=== PATIENT | female | born 1955 | race Caucasian/White ===

== ENCOUNTER 2016-07-25 04:07 | Inpatient (IN) | payer OTHER ==
[2016-07-12 12:07] LABS: BASOPHILS 0.2 %; BASOPHILS ABSOLUTE 0.01 10/3/uL (0.0-0.16); EOSINOPHILS 1.6 %; EOSINOPHILS ABSOLUTE 0.08 10/3/uL (0.0-0.53); IMMATURE GRANULOCYTES 0.2 %; IMMATURE GRANULOCYTES ABSOLUTE 0.01 10/3/uL (0.0-0.11); LYMPHOCYTES 26.1 %; LYMPHOCYTES ABSOLUTE 1.31 10/3/uL (0.67-4.30); MEAN PLATELET VOLUME 9.7 fL (9.2-13.0); MONOCYTES 8.4 %; MONOCYTES ABSOLUTE 0.42 10/3/uL (0.21-1.20); NEUTROPHILS 63.5 %; NEUTROPHILS ABSOLUTE 3.18 10/3/uL (2.02-8.40); PLATELET COUNT 214 10/3/uL (150-400); RBC DISTRIBUTION WIDTH 15.6 % (12.0-16.0)
[2016-07-12 12:10] LABS: HEMATOCRIT 40.6 % (36.0-48.0); HEMOGLOBIN 13.4 g/dL (12.0-16.0); MANUAL DIFF NO %; MEAN CORPUSCULAR HEMOGLOB 31.9 pg (26.0-34.0); MEAN CORPUSCULAR VOLUME 96.7 fL (80-100); PROTIME (NOT ORD) 13.3 SEC (12.0-14.5)
[2016-07-12 12:20] LABS: ALKALINE PHOSPHATASE 136 U/L (45-117); BUN (BLOOD UREA NITROGEN) 23 MG/DL (6-23); CALCIUM, SERUM 8.5 MG/DL (8.5-10.4); CHLORIDE, SERUM 106 MMOL/L (96-112); CO2 (CARBON DIOXIDE) 23 MMOL/L (24-34); GFR AFRICAN AMERICAN 56 ML/MIN (>=60); GFR NON AFRICAN AMERICAN 48 ML/MIN (>=60); POTASSIUM, SERUM 3.8 MMOL/L (3.5-5.3); SGOT(AST) 11 U/L (5-40); SGPT(ALT) 12 U/L (5-65); SODIUM, SERUM 142 MMOL/L (135-148); TOTAL PROTEIN 6.5 G/DL (6.0-8.5)
[2016-07-12 12:21] LABS: A/G RATIO 0.9 (0.7-1.9); ALBUMIN 3.1 G/DL (3.5-5.0); GLOBULIN 3.4 G/DL (2.5-4.1); GLUCOSE, SERUM 178 MG/DL (60-99); TOTAL BILIRUBIN 0.2 MG/DL (0-1.2)
[2016-07-12 13:37] LABS: ASCORBIC ACID (UR NOT ORDER) NEG (NEG); BILIRUBIN, URINE NEGATIVE (NEG); KETONE, URINE NEGATIVE (NEG); LEUKOCYTE ESTERASE(NOT OR NEG (NEG); WBC (NOT ORDERED) (RFLEX) 1 (0-5)
--- NOTE | ~2016-07-25 | DS ---
Discharge Summary [facility] [address] [place]. [address] NAME: SOPHIE MORAN : 53 STATUS : DIS IN PAT#: [id number] AGE: 61 ADM/REG DATE : 07/25/16 MR#: [id number] REPORT SERV DATE: 08/08/16 DICTATED BY: LINA CASON DATE: 08/07/16 REPORT STATUS : Draft TRANSCRIBED BY: MARYSOL DATE: 08/07/16 Data Collection from hospitalization DISCHARGE DIAGNOSES: 1. Severe left knee degenerative joint disease. 2. Hypertension. 3. History of lung cancer. 4. History of cerebrovascular accident. 5. History of seizures. 6. Gastroesophageal reflux disease. CONSULTATIONS: None. PROCEDURES PERFORMED: Left posterior stabilized total knee replacement - cemented, 07/25/2016. PATHOLOGY: Left knee joint arthroplasty - degenerative joint disease. No evidence was seen of an infectious or neoplastic process. DISCHARGE MEDICATIONS: Percocet 5/325 one tablet every four hours as needed for pain. Other medications as instructed. CONDITION AT DISCHARGE: Stable. DISPOSITION: The patient was discharged to [facility] with diet and activities as instructed. HOSPITAL COURSE: This is a 61-year-old female who had bilateral knee pain for years. It was gradually getting worse. It was severe and affected how far she could walk. A year ago, she has been set up for surgery but was found to have spot on her lungs. She was now cleared to have the surgery and has no cardiac issues. The patient wants to have both of her knees replaced. It was elected to proceed with surgical intervention on the left knee at this time. She was admitted to the hospital at this time for further evaluation and treatment. Upon admission, she was taken to the operating room where she underwent the above-mentioned procedure. She tolerated this well. There were no complications. On postop day #1, she was in no acute distress. LUIS ALBERTO toes were in place. She was going to begin physical therapy at this time. Blood pressure was controlled. Pepcid was stopped. She was continued on Protonix. Occupational Therapy also evaluated the patient. On postop day #2, she was doing well. She had no new complaints. She did have some pitting edema of the left lower extremity. Blood pressure was controlled. She was on lisinopril. On the , she had good pain control. She had no nausea or vomiting. Her LUIS ALBERTO hose remained in place. Discharge planning was performed. On 07/24/2016, she continued to progress. We encouraged her to mobilize with Physical Therapy. Ativan was held. Amitriptyline and Zoloft were continued. EzPAP respiratory treatments were continued as well. The next day, she was much improved. She had no Discharge Summary [address] [address] NAME: SOPHIE MORAN : 53 STATUS : DIS IN PAT#: [id number] AGE: 61 ADM/REG DATE : 07/25/16 MR#: [id number] REPORT SERV DATE: 08/08/16 DICTATED BY: LINA CASON DATE: 08/07/16 REPORT STATUS : Draft TRANSCRIBED BY: MARYSOL DATE: 08/07/16 complaints at this time. Discharge planning continued. On 07/31/2016, she was alert and cooperative. She had no focal deficits. She had normal distal pulses. Discharge instructions were given. Due to her improved and stable condition, she was discharged to [facility] with the above-stated instructions. Information collected by: Yesenia More I submit the above information as my discharge summary. JUAN/MARYSOL Rafal Cason M.D. / [id number] CC: Rafal Cason M.D. [facility]
--- NOTE | ~2016-07-25 | OP ---
Record Of Operation [facility] [address] [place] [place]. [address] NAME: SOPHIE MORAN : 53 STATUS : ADM IN PAT#: [id number] AGE: 61 ADM/REG DATE : 07/25/16 MR#: [id number] REPORT SERV DATE: 07/26/16 DICTATED BY: LINA CASON DATE: 07/25/16 REPORT STATUS : Draft TRANSCRIBED BY: MARYSOL DATE: 07/25/16 DATE OF PROCEDURE: PREOPERATIVE DIAGNOSIS: Severe left knee degenerative joint disease. POSTOPERATIVE DIAGNOSIS: Severe left knee degenerative joint disease. OPERATION: Left posterior stabilized total knee replacement, cemented. SIDE: Left. SIZE: See chart. ANESTHESIA: See chart. ESTIMATED BLOOD LOSS: About 10 mL. TOURNIQUET TIME: Approximately 1 hour and 10 minutes. COMPLICATIONS: None. SPECIMENS: Articular surfaces. PROCEDURE: The patient was appropriately identified and marked. The operative side agreed with the consent form and it was checked by all members of the surgical team. The patient was taken to the operating room and anesthesia was induced per the anesthesiologist. The patient was carefully transferred to the operating table without incident. The patient received appropriate prophylactic antibiotics and a Wang catheter was placed in the standard sterile technique. The patient was then carefully positioned, padded, prepped and draped in the normal sterile fashion. The operative leg had been appropriately identified and checked by all members of the operating team against the consent form and found to be the correct limb. The patient's lower extremity was then exsanguinated with an Mark wrap and a tourniquet was inflated to 350 mm/Hg. Sharp dissection was carried out through a straight midline longitudinal incision and electrocautery through the fat. Sharp quad splitting approach was carried out between about the medial 10 percent of the tendon and the lateral 90 percent of the tendon and down around the medial aspect of the patella and then 1 cm medial to the tibial tubercle. The patella was carefully everted and the posterior fat pad was excised and gentle MCL elevation was carried out off the proximal medial tibia subperiosteally. IM guide was placed in the distal femur after using the appropriate drill. The distal femoral cutting guide was held with 2 pins and the distal cut made. Meniscal fragments and the ACL and the PCL were excised with electrocautery, carefully staying anterior to the posterior fat pad. The proximal tibial alignment guide was set appropriately and the proximal tibial cut made. Spacer block verified full extension with excellent mediolateral balance. Sizing guide was used to place 2 drill holes in the distal femur and the four-in-one cutting block was then placed, impacted and checked Record Of Operation [facility] [address] [place] [place]. [address] NAME: SOPHIE MORAN : 53 STATUS : ADM IN PAT#: [id number] AGE: 61 ADM/REG DATE : 07/25/16 MR#: [id number] REPORT SERV DATE: 07/26/16 DICTATED BY: LINA CASON DATE: 07/25/16 REPORT STATUS : Draft TRANSCRIBED BY: MARYSOL DATE: 07/25/16 to be sure it would not notch with an mundo wing and it was held with 2 pins. The anterior cut, posterior cut, anterior chamfer and posterior chamfer cuts were made. The pins were removed and the block was removed. A posterior release was carried out with a curved 3/4 inch osteotome staying right on the bone posteriorly. The box-cut guide was then placed, impacted and held with 2 pins and a reciprocating saw was used to cut out the box. With the trial components in place, there was excellent medial/lateral balance. The patella was then measured with a caliper, cut first with an oscillating saw and then reamed with a patella reamer. With the trial patella in place, there was excellent patellar tracking. Rotation was marked on the tibia and the tibia prepared with a drill and stamp chisel. All surfaces were then copiously irrigated with pulsatile lavage, carefully dried and then vacuum-mixed cement was pressurized with a cement gun in a doughy phase. The tibial component was placed, impacted and excess cement was removed. The cement was then pressurized in the femur and placed on the posterior runners of the femoral component, which was placed, impacted and excess cement removed and the knee was brought out into extension on a trial spacer. The cement was then pressurized in the patella. Patellar component was then placed, clamped and excess cement was removed. Once all cement was hardened, the knee was taken through range of motion. Further extruded cement was removed with a small osteotome. Then based on the trial inserts, we decided on the actual insert, which was placed in the standard fashion and held with a locking mechanism. The knee was then copiously irrigated and then closed in a layered fashion over a medium Hemovac drain superolaterally with interrupted #1 in the deep fascia, 2-0 subcutaneous and penny in the skin. The wounds were dressed sterilely and the tourniquet was deflated. The patient was then awakened and taken to the postanesthesia care unit without incident. All counts were correct at the end of the case. WTB/MODL Rafal Cason M.D. / [id number] CC: Rafal Cason M.D. [facility]
[~2016-07-25 04:07] MED LIST: AMIT25 PO; ASAB PO; ATV1 PO; FLEX PO; FOLIC PO; GLUCXL2.5 PO; IMOD PO; L20 PO; LIOR10 PO; MOBIC15 MG PO; PERCOCET1 TA2 PO; PRILO PO; PRIN10 PO; TEG200 PO; TRENTAL400 PO; VITE PO; ZESTORETIC PO; ZOCOR20 PO; ZOL100 PO
[2016-07-25 19:59] LABS: ASCORBIC ACID (UR NOT ORDER) NEG (NEG); BILIRUBIN, URINE NEGATIVE (NEG); KETONE, URINE NEGATIVE (NEG); LEUKOCYTE ESTERASE(NOT OR SMALL (NEG); WBC (NOT ORDERED) (RFLEX) 7 (0-5)
[2016-07-26 06:23] LABS: HEMATOCRIT 32.3 % (36.0-48.0); HEMOGLOBIN 10.5 g/dL (12.0-16.0)
[2016-07-26 06:25] LABS: INTERNATIONAL NORMAL RATI 1.1 UNITS (-); PROTIME (NOT ORD) 13.8 SEC (12.0-14.5)
[2016-07-26 06:33] LABS: CALCIUM, SERUM 7.9 MG/DL (8.5-10.4); CHLORIDE, SERUM 106 MMOL/L (96-112); CO2 (CARBON DIOXIDE) 27 MMOL/L (24-34); GFR AFRICAN AMERICAN 70 ML/MIN (>=60); GFR NON AFRICAN AMERICAN 60 ML/MIN (>=60); POTASSIUM, SERUM 4.2 MMOL/L (3.5-5.3); SODIUM, SERUM 140 MMOL/L (135-148)
[2016-07-26 06:34] LABS: BUN (BLOOD UREA NITROGEN) 19 MG/DL (6-23); GLUCOSE, SERUM 93 MG/DL (60-99)
[2016-07-27 05:20] LABS: HEMATOCRIT 31.3 % (36.0-48.0); HEMOGLOBIN 10.2 g/dL (12.0-16.0); INTERNATIONAL NORMAL RATI 1.4 UNITS (-); PROTIME (NOT ORD) 17.3 SEC (12.0-14.5)
[2016-07-27 05:32] LABS: BUN (BLOOD UREA NITROGEN) 21 MG/DL (6-23); CALCIUM, SERUM 8.1 MG/DL (8.5-10.4); CHLORIDE, SERUM 106 MMOL/L (96-112); CO2 (CARBON DIOXIDE) 24 MMOL/L (24-34); CREATININE 1.12 MG/DL (0.55-1.02); GFR AFRICAN AMERICAN 61 ML/MIN (>=60); GFR NON AFRICAN AMERICAN 53 ML/MIN (>=60); GLUCOSE, SERUM 109 MG/DL (60-99); SODIUM, SERUM 141 MMOL/L (135-148)
[2016-07-28 04:18] LABS: INTERNATIONAL NORMAL RATI 1.6 UNITS (-); PROTIME (NOT ORD) 18.7 SEC (12.0-14.5)
[2016-07-28 04:21] LABS: HEMATOCRIT 29.4 % (36.0-48.0); HEMOGLOBIN 9.9 g/dL (12.0-16.0)
[2016-07-29 05:36] LABS: HEMATOCRIT 29.7 % (36.0-48.0)
[2016-07-29 05:44] LABS: INTERNATIONAL NORMAL RATI 1.8 UNITS (-); PROTIME (NOT ORD) 20.6 SEC (12.0-14.5)
[2016-07-29 05:52] LABS: BUN (BLOOD UREA NITROGEN) 20 MG/DL (6-23); CALCIUM, SERUM 8.8 MG/DL (8.5-10.4); CHLORIDE, SERUM 106 MMOL/L (96-112); CO2 (CARBON DIOXIDE) 26 MMOL/L (24-34); CREATININE 0.91 MG/DL (0.55-1.02); GFR AFRICAN AMERICAN 78 ML/MIN (>=60); GFR NON AFRICAN AMERICAN 68 ML/MIN (>=60); GLUCOSE, SERUM 101 MG/DL (60-99); POTASSIUM, SERUM 4.1 MMOL/L (3.5-5.3); SODIUM, SERUM 140 MMOL/L (135-148)
[2016-07-30 05:28] LABS: INTERNATIONAL NORMAL RATI 1.9 UNITS (-); PROTIME (NOT ORD) 21.2 SEC (12.0-14.5)
[2016-07-31 04:26] LABS: INTERNATIONAL NORMAL RATI 1.9 UNITS (-); PROTIME (NOT ORD) 21.6 SEC (12.0-14.5)
== END 2016-07-31 14:22 | DRG 470 ==
LOC: SDC/OF 04:07 → PACU 08:26 → 3JRC 10:11 → 3SO 07-28 14:08
PROVIDERS: Nurse Practitioner Acute Care; Specialist
PROC: 0SRD0J9 Replacement of Left Knee Joint with Synthetic Substitute, Cemented, Open Approach (ICD-10-PCS; principal; 2016-07-25 05:30)
DX: M17.12 Unilateral primary osteoarthritis, left knee (principal); J44.1 Chronic obstructive pulmonary disease with (acute) exacerbation; I10 Essential (primary) hypertension; Z68.41 Body mass index [BMI] 40.0-44.9, adult; E78.5 Hyperlipidemia, unspecified; E11.9 Type 2 diabetes mellitus without complications; K21.9 Gastro-esophageal reflux disease without esophagitis; J44.9 Chronic obstructive pulmonary disease, unspecified; F32.9 Major depressive disorder, single episode, unspecified; F41.9 Anxiety disorder, unspecified; F17.210 Nicotine dependence, cigarettes, uncomplicated; E66.9 Obesity, unspecified
CPT/HCPCS: 71020; 80048; 80053; 81001; 82962; 85014; 85018; 85025; 85610; 87086; 87641; 88305; 88311; 93005; 94640; 97110-GO; 97110-GP; 97116-GP; 97163-GP; 97166-GO; 97530-GP; A9270-GY; C1776; J0690; J1885; J2250; J2274; J2405; J2795; J3010

== ENCOUNTER 2016-09-06 17:01 | Inpatient (IN) | payer OTHER ==
--- NOTE | ~2016-09-06 | HP ---
History And Physical [facility] [id number] [place]. [address] NAME: SOPHIE MORAN : 53 STATUS : ADM Jodie PAT#: [id number] AGE: 61 ADM/REG DATE : 09/06/16 MR#: [id number] REPORT SERV DATE: 09/07/16 DICTATED BY: ROB ADAM DATE: 09/07/16 REPORT STATUS : Draft TRANSCRIBED BY: MODL DATE: 09/07/16 DATE OF ADMISSION: 09/06/2016 CHIEF COMPLAINT: Sent by her primary care physician to go to the emergency room. HISTORY OF PRESENT ILLNESS: This is a 61-year-old female with a history of COPD, essential hypertension, gastroesophageal reflux disease, diabetes, and lung cancer, who recently had a knee surgery done by Dr. Nicola Mims, went to rehab and finally was discharged to home, who presents here to the ER at [facility] with the above-mentioned complaint. History is obtained from the patient, her [id number] who is at bedside, and reviewing data available on the [employer] system. According to Ms Moran, she had been in her usual state of health, finally discharged to home after she spent 15 to 18 days in the rehabilitation facility at [facility]. She went back to see her primary care physician, who had taken a urine sample which showed urinary tract infection. The patient was treated with oral antibiotics and then asked to go to the emergency room by the primary care physician's office. It is very unclear why she was asked to do that because she does not complain of any respiratory symptoms at all. Upon arrival here in the emergency room, the patient was found to be hypoxemic on room air. Requiring supplemental oxygen therapy. She had metabolic acidosis, acute kidney injury, acute exacerbation of her COPD as well and Hospitalist Service has asked to admit her for further evaluation and treatment. At the time of my evaluation, she denied any chest pain, palpitations, or orthopnea. She has no cough, hemoptysis, night sweats, or weight loss. She says she did fall after she was discharged to home from the rehab facility in the last few days. She is confident that she did not hit her head against anything or pass out. She denied any fevers, chills, nausea, vomiting, diarrhea, hematemesis, hematochezia, or hematuria. No other history of recent travel or exposures other than those mentioned above. PAST MEDICAL HISTORY: Significant for history of COPD, history of lung cancer, essential hypertension, gastroesophageal reflux disease, and diabetes mellitus type 2. SOCIAL HISTORY: She does not smoke, drink, or use recreational drugs at this time. FAMILY HISTORY: Noncontributory. MEDICATIONS: At home were reviewed by me in the chart today and reordered by me. REVIEW OF SYSTEMS: As in history of present illness. All other systems were reviewed in detail and are quite unremarkable. PHYSICAL EXAMINATION: GENERAL: This is a pleasant 61-year-old, not in any acute distress. History And Physical [address] [address] NAME: SOPHIE MORAN : 53 STATUS : ADM Jodie PAT#: [id number] AGE: 61 ADM/REG DATE : 09/06/16 MR#: [id number] REPORT SERV DATE: 09/07/16 DICTATED BY: ROB ADAM DATE: 09/07/16 REPORT STATUS : Draft TRANSCRIBED BY: MARYSOL DATE: 09/07/16 HEENT: Head is atraumatic, normocephalic. She is alert, awake, and oriented to time, place, and person. Pupils are equal, reacting to light and accommodating. External ocular muscles are intact. Membranes are moist and pink. Sclerae are nonicteric. NECK: Supple with no jugular venous distention, lymphadenopathy, or thyromegaly. LUNGS: Clear to auscultation with diffuse expiratory wheezes bilaterally. There was fair to moderate air entry. Trachea appeared to be in the midline. HEART: Auscultation of her heart revealed normal rate rhythm with no murmurs, rubs, or gallops. ABDOMEN: Soft, nontender. Bowel sounds are present. EXTREMITIES: Showed no cyanosis, clubbing, or edema. NEUROLOGIC: Grossly intact. No focal deficits. Higher functions appeared intact. Gait was not examined. VITAL SIGNS: Her vital signs today showed a temperature of 97.8, pulse 111, respirations 26 a minute, blood pressure was 112/65, oxygen saturations were 89% breathing 3 L of oxygen via nasal cannula. LABORATORY DATA: Reviewed on the [employer] system today showed a pH of 7.39 on arterial blood gas, pCO2 was 34, pO2 of 60, and bicarb was 19.8. This was on room air. CMP showed a sodium of 142, potassium 4.2, chloride 107, CO2 of 23, BUN was 42 with a creatinine of 1.64 which is up from her baseline of 1.0 to 1.1. GFR today was 38. Her lipase was 155 today. Lactate was 0.7 today. CBC showed a white blood cell count of 8800. Normal hemoglobin, hematocrit, and platelet count. Urinalysis did not reveal any acute abnormality. Films of the chest x-ray were reviewed by me on the PACS today and interpreted by me. Per my interpretation, there are chronic changes from her lung cancer, otherwise no new lobar consolidations or effusions. A 12-lead EKG done in the emergency room was reviewed and interpreted by me. There is normal sinus rhythm with a rate of [address] elevations. IMPRESSION: 1. Hypoxemia. 2. Metabolic acidosis. 3. Acute kidney injury. 4. Acute exacerbation of chronic obstructive pulmonary disease. 5. Essential hypertension. 6. Gastroesophageal reflux disease. 7. Diabetes mellitus type 2. 8. History of lung cancer. PLAN: We will admit Ms Moran to the Hospitalist Service with telemetry for a 24-hour observation. We will go ahead and maximize her bronchodilator treatments, continue supplemental oxygen therapy. We will also start her on empiric IV antibiotics and check her procalcitonin level. I will start her on IV fluids for volume replacement and consult Nephrology. We will also check her serum drug toxicity and other workup as ordered. We will place her on blood sugar control with NovoLog given subcutaneously per sliding scale and check her A1c. She will be on unfractionated heparin for DVT prophylaxis while there. History And Physical [address] [address] NAME: SOPHIE MORAN : 53 STATUS : ADM Jodie PAT#: [id number] AGE: 61 ADM/REG DATE : 09/06/16 MR#: [id number] REPORT SERV DATE: 09/07/16 DICTATED BY: ROB ADAM DATE: 09/07/16 REPORT STATUS : Draft TRANSCRIBED BY: MODL DATE: 09/07/16 I have discussed the above plans with the patient. Her questions were answered and she is agreeable to the above recommendations. Hospitalist Service will be following her during her stay here. /MARYSOL Rob Adam M.D. / [id number] CC: Davidson Parker M.D. [facility]
--- NOTE | ~2016-09-06 | IDS ---
Interim Discharge Summary [facility] [address] [place] [place]. [address] NAME: SOPHIE MORAN : 53 STATUS : ADM IN PAT#: [id number] AGE: 61 ADM/REG DATE : 09/06/16 MR#: [id number] REPORT SERV DATE: 09/17/16 DICTATED BY: ANABEL MEZA DATE: 09/16/16 REPORT STATUS : Draft TRANSCRIBED BY: MODGanga DATE: 09/16/16 ADMISSION DATE: 09/06/2016 DISCHARGE DATE: CONDITION: Condition of the patient so far is stable. CODE STATUS: Code status of this patient is DNR. DIAGNOSES: Diagnoses so far include the following: Lung cancer with multiple brain metastases for which Oncology, Dr. Garcia, is following along with Dr. Lord, Radiation Oncology. The patient has received her first palliative radiation therapy on 09/16/2016, that is today, and so far is doing well without any significant headaches or nausea. Other diagnoses that are stable in this patient include: 1. Chronic obstructive pulmonary disease. 2. Vocal cord paralysis probably as an extension from the lung cancer or tumor itself versus vocal cord paralysis from one of the brain metastases. 3. Chronic respiratory failure secondary to chronic obstructive pulmonary disease and above. 4. Gastroesophageal reflux disease. 5. 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 6. Hypertension which is stable. 7. Diabetes which is stable with current regimen of insulin. 8. Chronic physical debility. 9. End-stage lung cancer. BRIEF HOSPITAL COURSE: This patient is a very unfortunate 61-year-old female patient who was admitted with diagnoses that are outlined in history and physical exam dictated by Dr. Rivas. Essentially, the patient was admitted with the diagnoses of hypoxemia, metabolic acidosis, acute kidney injury. The patient was given supportive care and her acute hypoxemia resolved, but the patient does have chronic hypoxemic respiratory failure at this time. This is because of a combination of several different things that include COPD, obesity hypoventilation syndrome, lung cancer, multiple brain metastases, and also vocal cord paralysis. The patient's acute kidney injury has also resolved and the patient does have an element of CKD, probably in the second stage right now. Her creatinine, however, has normalized right now. While the patient was given symptomatic and supportive care for the above as we discovered that the patient had multiple metastases in the brain even though the patient said that she had gone through several treatments of radiation for the lung cancer through Dr. Garcia in the past, the patient herself said that she wanted Dr. Garcia to be consulted. Dr. Garcia was consulted while inpatient and in turn his advice was to consult Dr. Lord for palliative radiation. At this time, by no means is this patient's treatment curative. The prospective of hospice was brought up with the patient at one time, but the patient seems to Interim Discharge Summary [address] [address] NAME: SOPHIE MORAN : 53 STATUS : ADM IN PAT#: [id number] AGE: 61 ADM/REG DATE : 09/06/16 MR#: [id number] REPORT SERV DATE: 09/17/16 DICTATED BY: ANABEL MEZA DATE: 09/16/16 REPORT STATUS : Draft TRANSCRIBED BY: MARYSOL DATE: 09/16/16 be not ready at least about five to six days ago for hospice. She said she herself gave the permission to get one radiation treatment and she has received that today, on 09/16/2016. This is only palliative radiation to her brain. So, as of now, while she is getting active radiation treatments, the patient is not a candidate to go on to any of the [place] facilities like [facility], etc., in the [facility] as the patient is a [place] resident. So her options are as follows: Either patient goes home with home hospice or patient has to stay in the hospital while she is getting these palliative radiation treatments per Dr. Lord and also per Dr. Garcia. Code status of the patient, however, is DNR. At sometime in the future within the next few days if the patient chooses hospice, the only option for this patient is to go on home with home hospice. gymnasium teacher are actively working on her case and other specialists on the case include Dr. Garcia and Dr. Lord. This patient will be picked up and followed by my colleague on 09/17/2016. REVA/MARYSOL Anabel Meza M.D. / [id number] CC: Anabel Meza M.D.
--- NOTE | ~2016-09-06 | DS ---
Discharge Summary [facility] [address] [place]. [address] NAME: SOPHIE MORAN : 53 STATUS : DIS IN PAT#: [id number] AGE: 61 ADM/REG DATE : 09/06/16 MR#: [id number] REPORT SERV DATE: 09/28/16 DICTATED BY: DARRON BETANCOURT DATE: 09/27/16 REPORT STATUS : Draft TRANSCRIBED BY: MODL DATE: 09/27/16 ADMISSION DATE: 09/06/2016 DISCHARGE DATE: 09/27/2016 CHIEF COMPLAINT ON ADMISSION: Sent by primary care physician. DISCHARGING DIAGNOSES: 1. Metastatic lung cancer with brain metastases. 2. Dysphagia/vocal cord paralysis. 3. Urinary retention status post Wang placement. 4. Weakness and debility. 5. Acute exacerbation of chronic obstructive pulmonary disease. 6. History of hypertension. 7. Type 2 diabetes. 8. Metabolic acidosis with acute kidney injury. 9. Hypoxemia. HISTORY OF PRESENT ILLNESS: Please see full H and P by Dr. Castillo for details regarding initial presentation. HOSPITAL COURSE: Please see interim summaries by Dr. Irina Shine and Dr. Jame Marroquin for details regarding initial periods of hospitalization. Briefly, the patient was diagnosed with brain metastases from her lung cancer. She was started on Decadron and has status post her radiation treatments. She is being discharged to rehab as she has currently been opposed to hospice. There are no plans for further chemotherapy. She is DNR. POLST form is on the chart. I suspected that her dysphagia and vocal cord paralysis are due to her intracranial metastases. She has been tolerating her diet without issues. She has had to have her Wang replaced twice for failing voiding trial. We recommend bladder training with ongoing management at [facility]. It was recommended that we try voiding trial in about five to seven days. This is of course assuming she has had improvement in her functional status. She has been treated during this hospitalization for an aspiration pneumonia. She is also on seizure prophylaxis with Keppra. DISCHARGE MEDICATIONS: Aspirin 81 mg, Decadron 4 mg p.o. b.i.d., Neurontin 100 mg p.o. t.i.d., Keppra 500 mg in the morning and 750 mg at bedtime, Ativan 1 mg p.o. b.i.d., Spiriva, Proventil, Brovana, Pulmicort, omeprazole 20 mg daily, Tylenol p.r.n., Zofran p.r.n., Benadryl p.r.n., milk of magnesia p.r.n., glipizide 2.5 p.o. daily, [place] nasal spray p.r.n., albuterol. DISPOSITION: SNF. CODE STATUS AT DISCHARGE: DNR. Discharge Summary [address] [address] NAME: SOPHIE MORAN : 53 STATUS : DIS IN PAT#: [id number] AGE: 61 ADM/REG DATE : 09/06/16 MR#: [id number] REPORT SERV DATE: 09/28/16 DICTATED BY: DARRON BETANCOURT DATE: 09/27/16 REPORT STATUS : Draft TRANSCRIBED BY: MARYSOL DATE: 09/27/16 UMAIR/MARYSOL Darron Betancourt MD / [id number] CC: MD VERONICA Aguilar CHELSEY
--- NOTE | ~2016-09-06 | IDS ---
Interim Discharge Summary [facility] [address] [place]. [address] NAME: SOPHIE MORAN : 53 STATUS : ADM IN PAT#: [id number] AGE: 61 ADM/REG DATE : 09/06/16 MR#: [id number] REPORT SERV DATE: 09/23/16 DICTATED BY: ALFREDO TATUM II DATE: 09/23/16 REPORT STATUS : Draft TRANSCRIBED BY: MARYSOL DATE: 09/23/16 ADMISSION DATE: 09/06/2016 DISCHARGE DATE: DATE OF INTERIM: 09/23/2016. INTERIMM DIAGNOSES: 1. Metastatic lung cancer with brain metastases. 2. Vocal cord paralysis with dysphagia. 3. Chronic respiratory failure. 4. Chronic obstructive pulmonary disease. 5. 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 6. Diabetes mellitus type 2. 7. Hypertension. 8. Gastroesophageal reflux disease. CONSULTS: Dr. Garcia, and Dr. Lord. HOSPITAL COURSE: For details of the patient's hospitalization, please see H and P by Dr. Castillo on admission, 09/06/2016, and interim summary by Dr. Shine, 09/17/2016. Currently, the patient is awaiting completion of her brain radiation treatments prior to going to senior care facility this Friday. She is currently still wanting to pursue rehab as opposed to hospice despite palliative radiation and no further chemotherapy. MRI of the brain had shown multiple intracranial metastases which is likely responsible for dysphagia and vocal cord paralysis. She is tolerating her diet fairly well though without any evidence of aspiration. She also had some urinary retention and had to have a Wang placed, currently undergoing bladder training. Hopefully, it would be discontinued by the time she goes to SNF. She had been fully treated for aspiration pneumonia and currently no evidence of pneumonia. She remains on Decadron 4 mg p.o. b.i.d. and Keppra. Overall, fairly stable and anticipate discharge this Friday. Dr. Betancourt will take over the patient's care starting tomorrow. GABY/MARYSOL Alfredo Tatum II, MD / [id number] CC: MD VERONICA Armenta II, CHELSEY
--- NOTE | ~2016-09-06 | CN ---
Consultation Report [facility] [address] [place]. [address] NAME: SOPHIE MORAN : 53 STATUS : ADM IN [facility]#: [id number] AGE: 61 ADM/REG DATE : 09/06/16 MR#: [id number] REPORT SERV DATE: 09/11/16 DICTATED BY: BRI ROSE DATE: 09/11/16 REPORT STATUS : Draft TRANSCRIBED BY: MODGanga DATE: 09/11/16 NEUROLOGY CONSULTATION DATE OF CONSULTATION: 09/11/2016 REASON FOR CONSULTATION: Lung cancer with brain metastasis and questionable stroke. HOSPITALIST: Dr. Davidson Parker. LIEUTENANT GENERAL: Dr. Casper Leach. ONCOLOGIST: Dr. Richar Garcia. HISTORY OF PRESENT ILLNESS: The patient is a 61-year-old female who was sent to the emergency department by her primary care physician on 09/07/2016. She was immediately diagnosed with hypoxemia. She also had metabolic acidosis and was in acute kidney injury. According to the medical record, she also had an acute exacerbation of COPD. Consequently, she was admitted for further evaluation and treatment. It is known that the patient has lung cancer. She was diagnosed with IIB adenocarcinoma in 2014. This is being managed per Oncology. The patient mentioned that she had a right MCA territory stroke back in 2011 and her residual symptom was left hand and arm weakness. She mentioned that she used to have beautiful handwriting, but cannot write legibly (the patient is left handed). The patient had a left total knee arthroplasty in 07/2016. She seemed to do recover rather well and was sent to rehabilitation around the 06/04. While in rehabilitation, she noticed that she had a "drooping" left eye and the corner of her mouth on the left side was drooping. She also had some difficulty swallowing and her left arm was weak. This was a new symptom for her. At that time, she was also diagnosed with urinary tract infection. When questioned about seizure activity, the patient mentioned that a year after her stroke (2011), she did have a seizure, it was a tonic-clonic seizure. She saw Dr. Cantu in [facility] and was placed on Tegretol. At that time, she also had a UTI and was on Cipro. It was unsure as to whether her seizure was caused from her stroke or from the UTI or from Cipro. PAST MEDICAL HISTORY: COPD, lung cancer (IIB adenocarcinoma), essential hypertension, diabetes mellitus type 2, stroke, GERD, osteoarthritis, depression, polycythemia, obesity, and neuropathy. PAST SURGICAL HISTORY: Left total hip arthroplasty and left total knee arthroplasty. HOME MEDICATION LIST: Includes Tegretol 200 mg daily, Neurontin 100 mg t.i.d., Glucotrol XL 2.5 mg daily, Prinivil 10 mg daily, Ativan 1 mg b.i.d., Prilosec 20 mg daily, and Zocor 20 mg daily. Consultation Report [facility] [id number] [place]. [address] NAME: SOPHIE MORAN : 53 STATUS : ADM IN [facility]#: [id number] AGE: 61 ADM/REG DATE : 09/06/16 MR#: [id number] REPORT SERV DATE: 09/11/16 DICTATED BY: BRI ROSE DATE: 09/11/16 REPORT STATUS : Draft TRANSCRIBED BY: MARYSOL DATE: 09/11/16 ALLERGIES: WELLBUTRIN, , AND CIPRO. SOCIAL HISTORY: The patient is . She has no children. She is disabled. She is a smoker. Does not drink alcohol or use illicits. FAMILY HISTORY: Her mother from breast cancer and congestive heart failure. Her father from coronary artery disease. She has two siblings. Her sister from uterine cancer, and she has one brother who is still alive. REVIEW OF SYSTEMS: For pertinent positives, please refer to HPI. PHYSICAL EXAMINATION: GENERAL: The patient is a 61-year-old female, who stands 5 feet 5 inches tall and weighs 273 pounds. She is afebrile. VITAL SIGNS: Heart rate 106, respiratory rate 20, O2 saturations on 2 L nasal cannula 92%, and blood pressure 139/75. NEUROLOGIC: The patient is alert. She is oriented x4. She does communicate appropriately. She is slightly dysarthric. Language is fluent. Pupils are 3 mm, PERRLA. She does have ptosis of the left eyelid and significant facial droop on the left. Tongue deviation slightly to the left. No reported sensory deficits comparing the left to the right on her face. She can move all extremities x4. There is no ataxia with dbjrat-mg-sgol. There is no pronator drift. No asterixis, tremor, or dysmetria. Upper extremity strength is equal 5/5 bilaterally. Upper DTRs 1+ bilaterally. No reported sensory deficits comparing the left to the right. In the lower extremities, strength is 3/5 bilaterally. Lower DTRs are 1+ bilaterally. Downgoing toes. No reported sensory deficits. NECK: No carotid bruits, JVD, or thyromegaly. CHEST: Lung sounds are clear in the upper lobes, diminished in the bases. Few expiratory wheezes. CARDIAC: Regular rate and rhythm. LABORATORY DATA: CBC is normal. BMP normal. A1c 5.9. MRI of the brain with and without contrast demonstrates multiple intracranial metastasis. ASSESSMENT/PLAN: 1. Lung cancer with (stage IIB adenocarcinoma with brain metastasis). The patient's p.o. prednisone will be discontinued, to be placed on IV Decadron 10 mg IV now with 4 mg IV q.8 hours. She will undergo radiation and chemotherapy per Oncology. The patient's prognosis per Oncology. 2. 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 The patient's Tegretol will be changed to Keppra 500 mg p.o. q.a.m. and 750 mg in the p.m. She will be placed on seizure precautions and p.r.n. Ativan. 3. History of stroke in 2011. The patient will be placed on aspirin 81 mg daily and Lipitor 40 mg q.h.s. Consultation Report [address] [place]. [address] NAME: SOPHIE MORAN : 53 STATUS : ADM IN [facility]#: [id number] AGE: 61 ADM/REG DATE : 09/06/16 MR#: [id number] REPORT SERV DATE: 09/11/16 DICTATED BY: BRI ROSE DATE: 09/11/16 REPORT STATUS : Draft TRANSCRIBED BY: MARYSOL DATE: 09/11/16 Thank you again for including us in consultation. We will continue to follow with you. VIRY/MARYSOL Bri Rose, [facility] / [id number] CC: Jairo Hodgson CHELSEY Krishnendu Bhadra, M.D. Benjamin R Nadeau, MD David Dodson, M.D.
--- NOTE | ~2016-09-06 | CONSULT ---
Radiation Oncology Consult [address] [place]. [address] NAME: SOPHIE MORAN : 53 STATUS : ADM IN PAT#: [id number] AGE: 61 ADM/REG DATE : 09/06/16 MR#: [id number] REPORT SERV DATE: 09/11/16 DICTATED BY: BETO LORD DATE: 09/11/16 REPORT STATUS : Draft TRANSCRIBED BY: MARYSOL DATE: 09/11/16 RADIATION ONCOLOGY CONSULTATION CLINICAL SUMMARY: T3, N3 adenocarcinoma of the right upper lung with multiple presumed primary lesions followed by presentation of bilateral mediastinal adenopathy, now with brain metastases. 1. 06/22/2015 - 07/03/2015: 50 Gy in 5 fractions SBRT to the anterior and separately to the posterior right upper lobe lesion. 2. 07/13/2015 - 07/20/2015: 48 Gy in 4 fractions SBRT to the right apex lesion. 3. 11/21/2015 - 01/03/2016: 60 Gy in 30 fractions to the involved mediastinal lymph nodes including the paraesophageal lymph node. Concurrent carboplatin and Alimta. 4. 06/06/2016: Restaging CT showed at least 5 new subcentimeter pulmonary nodules with differential of metastasis versus inflammatory disease. INTERVAL HISTORY: Mrs. Moran presented to the emergency room several days ago with complaints of urinary tract infection. Upon workup, she was found to be hypoxic and in acute exacerbation of COPD. Additionally, she complains of a weak voice since undergoing knee surgery in July and also decreased appetite and fatigue over the past several months with approximately 20-pound weight loss. She has had difficulty stooling along with numbness in the buttocks region, and Dr. Mensah has ordered MRI of the spine in the past month which, by patient's report, was negative for any new lesions. During this admission, she had an MRI of the brain which shows diffuse brain metastases. The only strength and sensation changes she describes today are again her weak voice as well as toe numbness and weakness. She has also had some falls at home; she relates in part to difficulty with her knees. PAST MEDICAL HISTORY: COPD, lung cancer, essential hypertension, reflux, and diabetes type 2. SOCIAL HISTORY: She smoked since age 17 up until admission. FAMILY HISTORY: No family history of malignancy. REVIEW OF SYSTEMS: A comprehensive review of systems was obtained. Pertinent positives and negatives listed above. PHYSICAL EXAMINATION: GENERAL: Overweight white female, sitting in the hospital bed in no acute distress, though anxious and sad appearing at times. Awake and oriented x4. Performance status 2. ENT: Moist oral mucosa. Hearing unimpaired. Her voice is weak, but intelligible. NECK: Supple without adenopathy or thyromegaly. EYES: Sclerae anicteric. Pupils equal, round, and reactive to light. PULMONARY: Clear to auscultation bilaterally with weak coughing throughout the interview by the patient. Radiation Oncology Consult [address] [address] NAME: SOPHIE MORAN : 53 STATUS : ADM IN [facility]#: [id number] AGE: 61 ADM/REG DATE : 09/06/16 MR#: [id number] REPORT SERV DATE: 09/11/16 DICTATED BY: BETO LORD DATE: 09/11/16 REPORT STATUS : Draft TRANSCRIBED BY: MARYSOL DATE: 09/11/16 ABDOMEN: Soft, nontender, nondistended. Positive bowel sounds. EXTREMITIES: No clubbing, cyanosis, or edema. NEUROLOGIC: Vocal cord weakness is noted. Otherwise, strength and sensation 5/5 in the upper and lower extremities bilaterally with no distinct focal deficits otherwise. SKIN: No rashes or bruising noted. IMAGING: I reviewed MRI of the brain and agree with the above findings. ASSESSMENT AND PLAN: 1. New brain metastases: I am somewhat unconvinced that her vocal cord paralysis and other general complaints are related to these diffuse but relatively small lesions. It is, however, reasonable to suspect that coordination is affected by cerebellar lesions and potentially decreased appetite and fatigue related to overall cancer growth. I recommend a course of palliative whole-brain radiotherapy for a course of 30 Gy in 10 fractions. We are working to arrange CT simulation today, and we will discuss with Dr. Garcia potential start dates (either tomorrow or potentially next Friday as an outpatient). Decadron 4 mg daily would potentially improve any swelling related to these lesions so that we could better assess which symptoms will be potentially improved with whole brain radiotherapy. 2. Informed consent: Risks, benefits, and alternatives of radiotherapy were explained to the patient. Acute and late side effects were extensively discussed. The potential for enrolment on hospice was also extensively discussed. The patient elected to pursue the treatment as above. 3. Vocal cord weakness: This occurred around the time of her knee surgery and has persisted since that time. It could be that there was an injury during that procedure. Additionally, she had mediastinal pathologic adenopathy which could be causing a recurrent laryngeal nerve compression. The patient states that there are outside images obtained in late July. I will work to review those scans for further assessment on this issue. I think it is relatively unlikely that her brain metastasis is causing focal vocal cord weakness, though this is possible. 4. Difficulty with stooling: This could be related to inactivity, pain medication use, or brain metastasis. Reportedly, outside imaging of the spine did not show any lesion. We will continue to monitor. 5. Cough: She is currently receiving prednisone for acute chronic obstructive pulmonary disease. Given her recent radiation treatments, there is a possibility for pneumonitis. However, this is a diagnosis of exclusion with other causes need to be ruled out first. Typical treatment for pneumonitis would be 1 mg prednisone per kg weight. I would not expect for pneumonitis to cause vocal cord weakness. 6. Weight loss: This can be related to cancer regrowth. I will need to review outside imaging. This could also be related to her brain metastasis which should improve with treatment. 7. Anxiety and depression: The patient continues to be tearful at times throughout the interview. This is her normal affect. This was previously treated with sertraline, amitriptyline, and lorazepam. Radiation Oncology Consult [address] [address] NAME: SOPHIE MORAN : 53 STATUS : ADM IN [facility]#: [id number] AGE: 61 ADM/REG DATE : 09/06/16 MR#: [id number] REPORT SERV DATE: 09/11/16 DICTATED BY: BETO LORD DATE: 09/11/16 REPORT STATUS : Draft TRANSCRIBED BY: MARYSOL DATE: 09/11/16 TAMMIE/MARYSOL Beto Lord MD / [id number] CC: Jairo Hodgson,PIERCE Castro Jr., M.D. Jairo Bowen M.D. Zenon Ascencio, MD Rafal Rabago M.D.
[2016-09-06 17:26] LABS: BASOPHILS 0.2 %; BASOPHILS ABSOLUTE 0.02 10/3/uL (0.0-0.16); EOSINOPHILS 5.9 %; EOSINOPHILS ABSOLUTE 0.52 10/3/uL (0.0-0.53); IMMATURE GRANULOCYTES 0.2 %; IMMATURE GRANULOCYTES ABSOLUTE 0.02 10/3/uL (0.0-0.11); LYMPHOCYTES 15.3 %; LYMPHOCYTES ABSOLUTE 1.35 10/3/uL (0.67-4.30); MEAN CORPUS HGB CONC 33.1 g/dL (32.0-36.0); MEAN CORPUSCULAR HEMOGLOB 32.4 pg (26.0-34.0); MEAN CORPUSCULAR VOLUME 97.8 fL (80-100); MEAN PLATELET VOLUME 9.2 fL (9.2-13.0); MONOCYTES ABSOLUTE 0.88 10/3/uL (0.21-1.20); NEUTROPHILS 68.4 %; NEUTROPHILS ABSOLUTE 6.02 10/3/uL (2.02-8.40); PLATELET COUNT 228 10/3/uL (150-400); RBC DISTRIBUTION WIDTH 14.2 % (12.0-16.0); RED CELL COUNT 4.08 10/6/uL (4.0-5.6)
[2016-09-06 17:32] LABS: ER CBC TAT 0 Hrs 09 Mins; HEMATOCRIT 39.9 % (36.0-48.0); HEMOGLOBIN 13.2 g/dL (12.0-16.0); MANUAL DIFF NO %; WHITE BLOOD CELLS 8.8 10/3/uL (4.5-10.5)
[2016-09-06 17:36] LABS: INTERNATIONAL NORMAL RATI 1.1 UNITS (-); PARTIAL THROMBO TIME 27.2 SEC (22.5-37.2)
[2016-09-06 17:38] LABS: PROTIME (NOT ORD) 14.5 SEC (12.0-14.5)
[2016-09-06 17:42] LABS: A/G RATIO 0.8 (0.7-1.9); ALBUMIN 3.3 G/DL (3.5-5.0); ALKALINE PHOSPHATASE 139 U/L (45-117); CALCIUM, SERUM 8.8 MG/DL (8.5-10.4); CHLORIDE, SERUM 107 MMOL/L (96-112); CO2 (CARBON DIOXIDE) 23 MMOL/L (24-34); GFR AFRICAN AMERICAN 38 ML/MIN (>=60); GFR NON AFRICAN AMERICAN 33 ML/MIN (>=60); GLUCOSE, SERUM 90 MG/DL (60-99); POTASSIUM, SERUM 4.2 MMOL/L (3.5-5.3); SGOT(AST) 15 U/L (5-40); SGPT(ALT) 23 U/L (5-65); SODIUM, SERUM 142 MMOL/L (135-148); TOTAL BILIRUBIN 0.4 MG/DL (0-1.2); TOTAL PROTEIN 7.3 G/DL (6.0-8.5)
[2016-09-06 17:43] LABS: BUN (BLOOD UREA NITROGEN) 42 MG/DL (6-23); CREATININE 1.64 MG/DL (0.55-1.02)
[2016-09-06 21:55] LABS: LACTATE 0.7 MMOL/L (0.3-2.4)
[2016-09-06 22:06] LABS: ALLENS TEST Pos; BE (BASE EXCESS) -4.3 MEQ/L (0 +/- 2.5); CARBOXYHEMOGLOBIN 1.2 % (0-3); HCO3 (ACTUAL BICARBONATE) 19.8 MEQ/L (23-27); HEMOBLOGIN CONTENT 12.7 G/DL (12-16); INSTRUMENT SERIAL # 8087; METHEMOGLOBIN 0.2 % (0-3); O2 CONTENT 15.6 VOL% (18-24); OPERATOR ID 17537; PCO2 (CO2 TENSION) 34 MMHG (35-45); PO2 (O2 TENSION) 60 MMHG (79-93); SAMPLE Arterial; pH 7.39 (7.37-7.43)
[2016-09-06 22:59] LABS: ASCORBIC ACID (UR NOT ORDER) NEG (NEG); BILIRUBIN, URINE NEGATIVE (NEG); KETONE, URINE NEGATIVE (NEG); LEUKOCYTE ESTERASE(NOT OR NEG (NEG); WBC (NOT ORDERED) (RFLEX) 3 (0-5)
[2016-09-06 23:03] LABS: NITRITE (URINE) NEG (NEG)
[2016-09-07] MEDS ORDERED: NEUR100 PO (03:00)
[2016-09-07] MEDS ORDERED: PCET PO (03:01)
[2016-09-07] MEDS ORDERED: V2 PO (03:01)
[2016-09-07] MEDS ORDERED: ATV1 PO (03:06)
[2016-09-07] MEDS ORDERED: PRIN10 PO (03:07)
[2016-09-07] MEDS ORDERED: GLUCXL2.5 PO (03:07)
[2016-09-07] MEDS ORDERED: ZOCOR20 PO (03:08)
[2016-09-07] MEDS ORDERED: PRILO PO (03:14)
[2016-09-07] MEDS ORDERED: TEG200 PO (03:15)
[2016-09-07 05:49] LABS: SALICYLATE 1.7 MG/DL (-)
[2016-09-07 05:56] LABS: ACETAMINOPHEN LEVEL (TYLENOL) < 2.0 MCG/ML (10.0-20.0); ALCOHOL < 10 MG/DL (0)
[2016-09-07 09:01] LABS: BASOPHILS 0.2 %; BASOPHILS ABSOLUTE 0.01 10/3/uL (0.0-0.16); EOSINOPHILS 7.3 %; EOSINOPHILS ABSOLUTE 0.38 10/3/uL (0.0-0.53); HEMOGLOBIN 11.7 g/dL (12.0-16.0); IMMATURE GRANULOCYTES 0.4 %; IMMATURE GRANULOCYTES ABSOLUTE 0.02 10/3/uL (0.0-0.11); LYMPHOCYTES 15.4 %; MEAN CORPUS HGB CONC 32.7 g/dL (32.0-36.0); MEAN CORPUSCULAR HEMOGLOB 32.1 pg (26.0-34.0); MEAN CORPUSCULAR VOLUME 98.1 fL (80-100); MEAN PLATELET VOLUME 9.2 fL (9.2-13.0); MONOCYTES 12.7 %; MONOCYTES ABSOLUTE 0.66 10/3/uL (0.21-1.20); NEUTROPHILS ABSOLUTE 3.32 10/3/uL (2.02-8.40); PLATELET COUNT 202 10/3/uL (150-400); RBC DISTRIBUTION WIDTH 13.8 % (12.0-16.0); RED CELL COUNT 3.65 10/6/uL (4.0-5.6)
[2016-09-07 09:02] LABS: HEMATOCRIT 35.8 % (36.0-48.0); MANUAL DIFF NO %; WHITE BLOOD CELLS 5.2 10/3/uL (4.5-10.5)
[2016-09-07 09:05] LABS: CALCIUM, SERUM 8.3 MG/DL (8.5-10.4); CHLORIDE, SERUM 108 MMOL/L (96-112); CO2 (CARBON DIOXIDE) 23 MMOL/L (24-34); CREATININE 1.15 MG/DL (0.55-1.02); GFR AFRICAN AMERICAN 59 ML/MIN (>=60); GFR NON AFRICAN AMERICAN 51 ML/MIN (>=60); GLUCOSE, SERUM 105 MG/DL (60-99); PHOSPHORUS, SERUM 3.7 MG/DL (2.5-4.5); POTASSIUM, SERUM 3.8 MMOL/L (3.5-5.3); SODIUM, SERUM 143 MMOL/L (135-148)
[2016-09-07 09:06] LABS: BUN (BLOOD UREA NITROGEN) 35 MG/DL (6-23)
[2016-09-07 11:40] LABS: PROCALCITONIN 0.16 ng/mL (<0.5)
[2016-09-07 13:34] LABS: INFLUENZA A SCREEN NEGATIVE (NEGATIVE); INFLUENZA B SCREEN NEGATIVE (NEGATIVE)
[2016-09-07 16:10] LABS: FOLATE 13.2 NG/ML (>5.2)
[2016-09-08 06:19] LABS: BASOPHILS 0.4 %; BASOPHILS ABSOLUTE 0.02 10/3/uL (0.0-0.16); EOSINOPHILS 7.4 %; EOSINOPHILS ABSOLUTE 0.34 10/3/uL (0.0-0.53); HEMATOCRIT 34.5 % (36.0-48.0); HEMOGLOBIN 11.4 g/dL (12.0-16.0); IMMATURE GRANULOCYTES 0.4 %; IMMATURE GRANULOCYTES ABSOLUTE 0.02 10/3/uL (0.0-0.11); LYMPHOCYTES 23.5 %; LYMPHOCYTES ABSOLUTE 1.08 10/3/uL (0.67-4.30); MEAN CORPUSCULAR HEMOGLOB 31.8 pg (26.0-34.0); MEAN CORPUSCULAR VOLUME 96.4 fL (80-100); MEAN PLATELET VOLUME 8.7 fL (9.2-13.0); MONOCYTES 10.7 %; MONOCYTES ABSOLUTE 0.49 10/3/uL (0.21-1.20); NEUTROPHILS 57.6 %; NEUTROPHILS ABSOLUTE 2.64 10/3/uL (2.02-8.40); PLATELET COUNT 202 10/3/uL (150-400); RBC DISTRIBUTION WIDTH 13.6 % (12.0-16.0); RED CELL COUNT 3.58 10/6/uL (4.0-5.6); WHITE BLOOD CELLS 4.6 10/3/uL (4.5-10.5)
[2016-09-08 06:20] LABS: MANUAL DIFF NO %
[2016-09-08 06:26] LABS: CALCIUM, SERUM 8.2 MG/DL (8.5-10.4); CHLORIDE, SERUM 106 MMOL/L (96-112); CO2 (CARBON DIOXIDE) 25 MMOL/L (24-34); CREATININE 0.91 MG/DL (0.55-1.02); GFR AFRICAN AMERICAN 78 ML/MIN (>=60); GFR NON AFRICAN AMERICAN 68 ML/MIN (>=60); GLUCOSE, SERUM 91 MG/DL (60-99); PHOSPHORUS, SERUM 3.5 MG/DL (2.5-4.5); POTASSIUM, SERUM 4.2 MMOL/L (3.5-5.3); SODIUM, SERUM 141 MMOL/L (135-148)
[2016-09-08 06:27] LABS: BUN (BLOOD UREA NITROGEN) 21 MG/DL (6-23)
[2016-09-09 06:22] LABS: BASOPHILS 0.2 %; BASOPHILS ABSOLUTE 0.01 10/3/uL (0.0-0.16); EOSINOPHILS 4.8 %; EOSINOPHILS ABSOLUTE 0.28 10/3/uL (0.0-0.53); HEMATOCRIT 34.7 % (36.0-48.0); HEMOGLOBIN 11.7 g/dL (12.0-16.0); IMMATURE GRANULOCYTES 0.3 %; IMMATURE GRANULOCYTES ABSOLUTE 0.02 10/3/uL (0.0-0.11); LYMPHOCYTES 18.6 %; LYMPHOCYTES ABSOLUTE 1.08 10/3/uL (0.67-4.30); MEAN CORPUS HGB CONC 33.7 g/dL (32.0-36.0); MEAN CORPUSCULAR HEMOGLOB 32.1 pg (26.0-34.0); MEAN CORPUSCULAR VOLUME 95.3 fL (80-100); MEAN PLATELET VOLUME 8.8 fL (9.2-13.0); MONOCYTES 12.6 %; MONOCYTES ABSOLUTE 0.73 10/3/uL (0.21-1.20); NEUTROPHILS 63.5 %; NEUTROPHILS ABSOLUTE 3.68 10/3/uL (2.02-8.40); PLATELET COUNT 209 10/3/uL (150-400); RBC DISTRIBUTION WIDTH 13.4 % (12.0-16.0); RED CELL COUNT 3.64 10/6/uL (4.0-5.6); WHITE BLOOD CELLS 5.8 10/3/uL (4.5-10.5)
[2016-09-09 06:26] LABS: MANUAL DIFF NO %
[2016-09-09 06:28] LABS: CALCIUM, SERUM 8.4 MG/DL (8.5-10.4); CHLORIDE, SERUM 106 MMOL/L (96-112); CO2 (CARBON DIOXIDE) 27 MMOL/L (24-34); CREATININE 0.77 MG/DL (0.55-1.02); GFR AFRICAN AMERICAN 96 ML/MIN (>=60); GFR NON AFRICAN AMERICAN 83 ML/MIN (>=60); GLUCOSE, SERUM 94 MG/DL (60-99); PHOSPHORUS, SERUM 2.9 MG/DL (2.5-4.5); POTASSIUM, SERUM 3.9 MMOL/L (3.5-5.3); SODIUM, SERUM 143 MMOL/L (135-148)
[2016-09-09 06:32] LABS: BUN (BLOOD UREA NITROGEN) 14 MG/DL (6-23)
[2016-09-10 05:18] LABS: BASOPHILS 0.1 %; BASOPHILS ABSOLUTE 0.01 10/3/uL (0.0-0.16); EOSINOPHILS 3.8 %; EOSINOPHILS ABSOLUTE 0.26 10/3/uL (0.0-0.53); HEMATOCRIT 34.9 % (36.0-48.0); HEMOGLOBIN 11.8 g/dL (12.0-16.0); IMMATURE GRANULOCYTES 0.3 %; IMMATURE GRANULOCYTES ABSOLUTE 0.02 10/3/uL (0.0-0.11); LYMPHOCYTES 16.3 %; LYMPHOCYTES ABSOLUTE 1.11 10/3/uL (0.67-4.30); MANUAL DIFF NO %; MEAN CORPUS HGB CONC 33.8 g/dL (32.0-36.0); MEAN CORPUSCULAR HEMOGLOB 32.4 pg (26.0-34.0); MEAN CORPUSCULAR VOLUME 95.9 fL (80-100); MEAN PLATELET VOLUME 8.7 fL (9.2-13.0); MONOCYTES 11.2 %; MONOCYTES ABSOLUTE 0.76 10/3/uL (0.21-1.20); NEUTROPHILS 68.3 %; NEUTROPHILS ABSOLUTE 4.64 10/3/uL (2.02-8.40); PLATELET COUNT 213 10/3/uL (150-400); RBC DISTRIBUTION WIDTH 13.5 % (12.0-16.0); RED CELL COUNT 3.64 10/6/uL (4.0-5.6); WHITE BLOOD CELLS 6.8 10/3/uL (4.5-10.5)
[2016-09-10 05:34] LABS: BUN (BLOOD UREA NITROGEN) 13 MG/DL (6-23); CALCIUM, SERUM 8.7 MG/DL (8.5-10.4); CHLORIDE, SERUM 105 MMOL/L (96-112); CO2 (CARBON DIOXIDE) 28 MMOL/L (24-34); CREATININE 0.85 MG/DL (0.55-1.02); GFR AFRICAN AMERICAN 85 ML/MIN (>=60); GFR NON AFRICAN AMERICAN 73 ML/MIN (>=60); GLUCOSE, SERUM 96 MG/DL (60-99); PHOSPHORUS, SERUM 2.6 MG/DL (2.5-4.5); POTASSIUM, SERUM 3.8 MMOL/L (3.5-5.3); SODIUM, SERUM 141 MMOL/L (135-148)
[2016-09-11 06:16] LABS: BASOPHILS 0.1 %; BASOPHILS ABSOLUTE 0.01 10/3/uL (0.0-0.16); EOSINOPHILS 5.3 %; HEMOGLOBIN 11.7 g/dL (12.0-16.0); IMMATURE GRANULOCYTES 0.3 %; IMMATURE GRANULOCYTES ABSOLUTE 0.02 10/3/uL (0.0-0.11); LYMPHOCYTES 14.4 %; LYMPHOCYTES ABSOLUTE 1.08 10/3/uL (0.67-4.30); MEAN CORPUS HGB CONC 33.4 g/dL (32.0-36.0); MEAN CORPUSCULAR VOLUME 95.6 fL (80-100); MONOCYTES 12.4 %; MONOCYTES ABSOLUTE 0.93 10/3/uL (0.21-1.20); NEUTROPHILS 67.5 %; NEUTROPHILS ABSOLUTE 5.05 10/3/uL (2.02-8.40); PLATELET COUNT 207 10/3/uL (150-400); RED CELL COUNT 3.66 10/6/uL (4.0-5.6); WHITE BLOOD CELLS 7.5 10/3/uL (4.5-10.5)
[2016-09-11 06:19] LABS: MANUAL DIFF NO %
[2016-09-11 06:31] LABS: BUN (BLOOD UREA NITROGEN) 15 MG/DL (6-23); CALCIUM, SERUM 8.6 MG/DL (8.5-10.4); CHLORIDE, SERUM 100 MMOL/L (96-112); CO2 (CARBON DIOXIDE) 29 MMOL/L (24-34); CREATININE 0.84 MG/DL (0.55-1.02); GFR AFRICAN AMERICAN 86 ML/MIN (>=60); GFR NON AFRICAN AMERICAN 74 ML/MIN (>=60); GLUCOSE, SERUM 107 MG/DL (60-99); PHOSPHORUS, SERUM 3.7 MG/DL (2.5-4.5); POTASSIUM, SERUM 4.2 MMOL/L (3.5-5.3); SODIUM, SERUM 139 MMOL/L (135-148)
[2016-09-12 04:48] LABS: BASOPHILS 0.1 %; BASOPHILS ABSOLUTE 0.01 10/3/uL (0.0-0.16); EOSINOPHILS 0 %; HEMATOCRIT 36.7 % (36.0-48.0); HEMOGLOBIN 12.1 g/dL (12.0-16.0); IMMATURE GRANULOCYTES 0.3 %; IMMATURE GRANULOCYTES ABSOLUTE 0.03 10/3/uL (0.0-0.11); LYMPHOCYTES 10.8 %; LYMPHOCYTES ABSOLUTE 0.94 10/3/uL (0.67-4.30); MEAN CORPUSCULAR HEMOGLOB 31.9 pg (26.0-34.0); MEAN CORPUSCULAR VOLUME 96.8 fL (80-100); MEAN PLATELET VOLUME 8.9 fL (9.2-13.0); MONOCYTES 5.4 %; MONOCYTES ABSOLUTE 0.47 10/3/uL (0.21-1.20); NEUTROPHILS 83.4 %; NEUTROPHILS ABSOLUTE 7.22 10/3/uL (2.02-8.40); PLATELET COUNT 228 10/3/uL (150-400); RBC DISTRIBUTION WIDTH 13.6 % (12.0-16.0); RED CELL COUNT 3.79 10/6/uL (4.0-5.6); WHITE BLOOD CELLS 8.7 10/3/uL (4.5-10.5)
[2016-09-12 04:49] LABS: MANUAL DIFF NO %
[2016-09-12 05:27] LABS: BUN (BLOOD UREA NITROGEN) 16 MG/DL (6-23); CALCIUM, SERUM 9.2 MG/DL (8.5-10.4); CHLORIDE, SERUM 100 MMOL/L (96-112); CO2 (CARBON DIOXIDE) 30 MMOL/L (24-34); CREATININE 0.77 MG/DL (0.55-1.02); FREE T4 1.19 NG/DL (0.76-1.46); GFR AFRICAN AMERICAN 96 ML/MIN (>=60); GFR NON AFRICAN AMERICAN 83 ML/MIN (>=60); GLUCOSE, SERUM 128 MG/DL (60-99); PHOSPHORUS, SERUM 3.9 MG/DL (2.5-4.5); POTASSIUM, SERUM 4.5 MMOL/L (3.5-5.3); SODIUM, SERUM 138 MMOL/L (135-148)
[2016-09-12 05:32] LABS: FOLATE 8.8 NG/ML (>5.2); ULTRASENSITIVE TSH 0.358 MCIU/ML (0.358-3.740)
[2016-09-13 07:03] LABS: BASOPHILS 0.1 %; BASOPHILS ABSOLUTE 0.01 10/3/uL (0.0-0.16); EOSINOPHILS 0.3 %; EOSINOPHILS ABSOLUTE 0.02 10/3/uL (0.0-0.53); HEMATOCRIT 37.6 % (36.0-48.0); HEMOGLOBIN 12.4 g/dL (12.0-16.0); IMMATURE GRANULOCYTES 0.4 %; IMMATURE GRANULOCYTES ABSOLUTE 0.03 10/3/uL (0.0-0.11); LYMPHOCYTES 16.5 %; LYMPHOCYTES ABSOLUTE 1.27 10/3/uL (0.67-4.30); MEAN CORPUSCULAR VOLUME 96.9 fL (80-100); MEAN PLATELET VOLUME 8.8 fL (9.2-13.0); MONOCYTES 10.4 %; NEUTROPHILS 72.3 %; NEUTROPHILS ABSOLUTE 5.55 10/3/uL (2.02-8.40); PLATELET COUNT 259 10/3/uL (150-400); RBC DISTRIBUTION WIDTH 13.6 % (12.0-16.0); RED CELL COUNT 3.88 10/6/uL (4.0-5.6); WHITE BLOOD CELLS 7.7 10/3/uL (4.5-10.5)
[2016-09-13 07:07] LABS: MANUAL DIFF NO %
[2016-09-13 07:33] LABS: BUN (BLOOD UREA NITROGEN) 21 MG/DL (6-23); CALCIUM, SERUM 9.1 MG/DL (8.5-10.4); CHLORIDE, SERUM 102 MMOL/L (96-112); CO2 (CARBON DIOXIDE) 31 MMOL/L (24-34); CREATININE 0.84 MG/DL (0.55-1.02); GFR AFRICAN AMERICAN 86 ML/MIN (>=60); GFR NON AFRICAN AMERICAN 74 ML/MIN (>=60); GLUCOSE, SERUM 121 MG/DL (60-99); PHOSPHORUS, SERUM 4.4 MG/DL (2.5-4.5); POTASSIUM, SERUM 4.2 MMOL/L (3.5-5.3); SODIUM, SERUM 140 MMOL/L (135-148)
[2016-09-14 07:40] LABS: BASOPHILS 0 %; EOSINOPHILS 0.2 %; EOSINOPHILS ABSOLUTE 0.02 10/3/uL (0.0-0.53); HEMATOCRIT 39.1 % (36.0-48.0); HEMOGLOBIN 12.9 g/dL (12.0-16.0); IMMATURE GRANULOCYTES 0.4 %; IMMATURE GRANULOCYTES ABSOLUTE 0.05 10/3/uL (0.0-0.11); LYMPHOCYTES 11.5 %; LYMPHOCYTES ABSOLUTE 1.39 10/3/uL (0.67-4.30); MEAN CORPUSCULAR HEMOGLOB 31.7 pg (26.0-34.0); MEAN CORPUSCULAR VOLUME 96.1 fL (80-100); MEAN PLATELET VOLUME 9.1 fL (9.2-13.0); MONOCYTES 5.5 %; MONOCYTES ABSOLUTE 0.66 10/3/uL (0.21-1.20); NEUTROPHILS 82.4 %; NEUTROPHILS ABSOLUTE 9.97 10/3/uL (2.02-8.40); PLATELET COUNT 260 10/3/uL (150-400); RBC DISTRIBUTION WIDTH 13.9 % (12.0-16.0); RED CELL COUNT 4.07 10/6/uL (4.0-5.6)
[2016-09-14 07:42] LABS: MANUAL DIFF NO %; WHITE BLOOD CELLS 12.1 10/3/uL (4.5-10.5)
[2016-09-14 07:51] LABS: BUN (BLOOD UREA NITROGEN) 26 MG/DL (6-23); CALCIUM, SERUM 9.1 MG/DL (8.5-10.4); CHLORIDE, SERUM 99 MMOL/L (96-112); CO2 (CARBON DIOXIDE) 32 MMOL/L (24-34); CREATININE 0.92 MG/DL (0.55-1.02); GFR AFRICAN AMERICAN 77 ML/MIN (>=60); GFR NON AFRICAN AMERICAN 67 ML/MIN (>=60); GLUCOSE, SERUM 140 MG/DL (60-99); PHOSPHORUS, SERUM 4.2 MG/DL (2.5-4.5); POTASSIUM, SERUM 3.9 MMOL/L (3.5-5.3); SODIUM, SERUM 139 MMOL/L (135-148)
[2016-09-15 06:22] LABS: BASOPHILS 0.1 %; BASOPHILS ABSOLUTE 0.01 10/3/uL (0.0-0.16); EOSINOPHILS 0.1 %; EOSINOPHILS ABSOLUTE 0.01 10/3/uL (0.0-0.53); HEMATOCRIT 38.1 % (36.0-48.0); HEMOGLOBIN 12.8 g/dL (12.0-16.0); IMMATURE GRANULOCYTES 0.6 %; IMMATURE GRANULOCYTES ABSOLUTE 0.08 10/3/uL (0.0-0.11); LYMPHOCYTES 9.6 %; LYMPHOCYTES ABSOLUTE 1.23 10/3/uL (0.67-4.30); MEAN CORPUS HGB CONC 33.6 g/dL (32.0-36.0); MEAN CORPUSCULAR HEMOGLOB 32.4 pg (26.0-34.0); MEAN CORPUSCULAR VOLUME 96.5 fL (80-100); MEAN PLATELET VOLUME 9.1 fL (9.2-13.0); MONOCYTES 7.4 %; MONOCYTES ABSOLUTE 0.94 10/3/uL (0.21-1.20); NEUTROPHILS 82.2 %; NEUTROPHILS ABSOLUTE 10.48 10/3/uL (2.02-8.40); PLATELET COUNT 278 10/3/uL (150-400); RBC DISTRIBUTION WIDTH 13.9 % (12.0-16.0); RED CELL COUNT 3.95 10/6/uL (4.0-5.6); WHITE BLOOD CELLS 12.8 10/3/uL (4.5-10.5)
[2016-09-15 06:23] LABS: MANUAL DIFF NO %
[2016-09-15 06:25] LABS: BUN (BLOOD UREA NITROGEN) 28 MG/DL (6-23); CALCIUM, SERUM 8.8 MG/DL (8.5-10.4); CHLORIDE, SERUM 100 MMOL/L (96-112); CO2 (CARBON DIOXIDE) 30 MMOL/L (24-34); CREATININE 0.91 MG/DL (0.55-1.02); GFR AFRICAN AMERICAN 78 ML/MIN (>=60); GFR NON AFRICAN AMERICAN 68 ML/MIN (>=60); GLUCOSE, SERUM 134 MG/DL (60-99); PHOSPHORUS, SERUM 3.9 MG/DL (2.5-4.5); POTASSIUM, SERUM 4.3 MMOL/L (3.5-5.3); SODIUM, SERUM 141 MMOL/L (135-148)
[2016-09-16 04:59] LABS: BASOPHILS 0 %; EOSINOPHILS 0.2 %; EOSINOPHILS ABSOLUTE 0.02 10/3/uL (0.0-0.53); HEMATOCRIT 39.3 % (36.0-48.0); IMMATURE GRANULOCYTES 0.5 %; IMMATURE GRANULOCYTES ABSOLUTE 0.05 10/3/uL (0.0-0.11); LYMPHOCYTES 10.9 %; LYMPHOCYTES ABSOLUTE 1.13 10/3/uL (0.67-4.30); MEAN CORPUS HGB CONC 33.1 g/dL (32.0-36.0); MEAN CORPUSCULAR HEMOGLOB 32.1 pg (26.0-34.0); MEAN PLATELET VOLUME 9.2 fL (9.2-13.0); MONOCYTES 5.8 %; NEUTROPHILS 82.6 %; NEUTROPHILS ABSOLUTE 8.52 10/3/uL (2.02-8.40); PLATELET COUNT 301 10/3/uL (150-400); RED CELL COUNT 4.05 10/6/uL (4.0-5.6); WHITE BLOOD CELLS 10.3 10/3/uL (4.5-10.5)
[2016-09-16 05:00] LABS: MANUAL DIFF NO %
[2016-09-16 05:15] LABS: BUN (BLOOD UREA NITROGEN) 28 MG/DL (6-23); CALCIUM, SERUM 9.2 MG/DL (8.5-10.4); CHLORIDE, SERUM 102 MMOL/L (96-112); CO2 (CARBON DIOXIDE) 28 MMOL/L (24-34); CREATININE 1.08 MG/DL (0.55-1.02); GFR AFRICAN AMERICAN 64 ML/MIN (>=60); GFR NON AFRICAN AMERICAN 55 ML/MIN (>=60); GLUCOSE, SERUM 177 MG/DL (60-99); POTASSIUM, SERUM 4.3 MMOL/L (3.5-5.3); SODIUM, SERUM 140 MMOL/L (135-148)
[2016-09-17 04:47] LABS: BASOPHILS 0.1 %; BASOPHILS ABSOLUTE 0.01 10/3/uL (0.0-0.16); EOSINOPHILS 0 %; HEMATOCRIT 39.2 % (36.0-48.0); IMMATURE GRANULOCYTES 0.7 %; IMMATURE GRANULOCYTES ABSOLUTE 0.06 10/3/uL (0.0-0.11); LYMPHOCYTES 10.1 %; MEAN CORPUS HGB CONC 33.2 g/dL (32.0-36.0); MEAN CORPUSCULAR HEMOGLOB 32.1 pg (26.0-34.0); MEAN CORPUSCULAR VOLUME 96.8 fL (80-100); MEAN PLATELET VOLUME 9.1 fL (9.2-13.0); MONOCYTES 5.9 %; MONOCYTES ABSOLUTE 0.53 10/3/uL (0.21-1.20); NEUTROPHILS 83.2 %; NEUTROPHILS ABSOLUTE 7.45 10/3/uL (2.02-8.40); PLATELET COUNT 290 10/3/uL (150-400); RBC DISTRIBUTION WIDTH 13.7 % (12.0-16.0); RED CELL COUNT 4.05 10/6/uL (4.0-5.6)
[2016-09-17 04:48] LABS: MANUAL DIFF NO %
[2016-09-17 05:02] LABS: CALCIUM, SERUM 8.8 MG/DL (8.5-10.4); CHLORIDE, SERUM 102 MMOL/L (96-112); CO2 (CARBON DIOXIDE) 28 MMOL/L (24-34); GFR AFRICAN AMERICAN 70 ML/MIN (>=60); GFR NON AFRICAN AMERICAN 60 ML/MIN (>=60); GLUCOSE, SERUM 157 MG/DL (60-99); PHOSPHORUS, SERUM 4.1 MG/DL (2.5-4.5); POTASSIUM, SERUM 4.4 MMOL/L (3.5-5.3); SODIUM, SERUM 140 MMOL/L (135-148)
[2016-09-17 05:07] LABS: BUN (BLOOD UREA NITROGEN) 35 MG/DL (6-23)
[2016-09-18 05:32] LABS: BASOPHILS 0.1 %; BASOPHILS ABSOLUTE 0.01 10/3/uL (0.0-0.16); EOSINOPHILS 0 %; HEMATOCRIT 41.9 % (36.0-48.0); HEMOGLOBIN 13.9 g/dL (12.0-16.0); IMMATURE GRANULOCYTES ABSOLUTE 0.11 10/3/uL (0.0-0.11); LYMPHOCYTES ABSOLUTE 1.28 10/3/uL (0.67-4.30); MANUAL DIFF NO %; MEAN CORPUS HGB CONC 33.2 g/dL (32.0-36.0); MEAN CORPUSCULAR HEMOGLOB 31.7 pg (26.0-34.0); MEAN CORPUSCULAR VOLUME 95.7 fL (80-100); MONOCYTES 5.2 %; MONOCYTES ABSOLUTE 0.55 10/3/uL (0.21-1.20); NEUTROPHILS 81.7 %; PLATELET COUNT 301 10/3/uL (150-400); RBC DISTRIBUTION WIDTH 13.6 % (12.0-16.0); RED CELL COUNT 4.38 10/6/uL (4.0-5.6); WHITE BLOOD CELLS 10.7 10/3/uL (4.5-10.5)
[2016-09-18 05:50] LABS: BUN (BLOOD UREA NITROGEN) 37 MG/DL (6-23); CALCIUM, SERUM 9.2 MG/DL (8.5-10.4); CHLORIDE, SERUM 101 MMOL/L (96-112); CO2 (CARBON DIOXIDE) 27 MMOL/L (24-34); CREATININE 0.98 MG/DL (0.55-1.02); GFR AFRICAN AMERICAN 72 ML/MIN (>=60); GFR NON AFRICAN AMERICAN 62 ML/MIN (>=60); GLUCOSE, SERUM 151 MG/DL (60-99); PHOSPHORUS, SERUM 4.2 MG/DL (2.5-4.5); POTASSIUM, SERUM 4.7 MMOL/L (3.5-5.3); SODIUM, SERUM 140 MMOL/L (135-148)
[2016-09-19 05:37] LABS: BASOPHILS 0.1 %; BASOPHILS ABSOLUTE 0.01 10/3/uL (0.0-0.16); EOSINOPHILS 0 %; HEMATOCRIT 41.5 % (36.0-48.0); HEMOGLOBIN 13.9 g/dL (12.0-16.0); IMMATURE GRANULOCYTES 0.6 %; IMMATURE GRANULOCYTES ABSOLUTE 0.09 10/3/uL (0.0-0.11); LYMPHOCYTES 5.5 %; LYMPHOCYTES ABSOLUTE 0.88 10/3/uL (0.67-4.30); MEAN CORPUS HGB CONC 33.5 g/dL (32.0-36.0); MEAN CORPUSCULAR VOLUME 95.6 fL (80-100); MEAN PLATELET VOLUME 9.2 fL (9.2-13.0); MONOCYTES 5.2 %; MONOCYTES ABSOLUTE 0.83 10/3/uL (0.21-1.20); NEUTROPHILS 88.6 %; PLATELET COUNT 299 10/3/uL (150-400); RBC DISTRIBUTION WIDTH 13.6 % (12.0-16.0); RED CELL COUNT 4.34 10/6/uL (4.0-5.6)
[2016-09-19 05:39] LABS: MANUAL DIFF NO %; WHITE BLOOD CELLS 16.1 10/3/uL (4.5-10.5)
[2016-09-19 05:45] LABS: BUN (BLOOD UREA NITROGEN) 39 MG/DL (6-23); CALCIUM, SERUM 8.9 MG/DL (8.5-10.4); CHLORIDE, SERUM 100 MMOL/L (96-112); CO2 (CARBON DIOXIDE) 23 MMOL/L (24-34); GFR AFRICAN AMERICAN 70 ML/MIN (>=60); GFR NON AFRICAN AMERICAN 60 ML/MIN (>=60); GLUCOSE, SERUM 166 MG/DL (60-99); PHOSPHORUS, SERUM 3.9 MG/DL (2.5-4.5); POTASSIUM, SERUM 4.2 MMOL/L (3.5-5.3); SODIUM, SERUM 137 MMOL/L (135-148)
[2016-09-19 10:43] LABS: WBC (NOT ORDERED) (RFLEX) 0 (0-5)
[2016-09-19 10:55] LABS: ASCORBIC ACID (UR NOT ORDER) NEG (NEG); BILIRUBIN, URINE NEGATIVE (NEG); KETONE, URINE NEGATIVE (NEG); LEUKOCYTE ESTERASE(NOT OR SMALL (NEG)
[2016-09-20 04:30] LABS: BASOPHILS 0 %; EOSINOPHILS 0 %; HEMATOCRIT 43.8 % (36.0-48.0); HEMOGLOBIN 14.8 g/dL (12.0-16.0); IMMATURE GRANULOCYTES 0.5 %; LYMPHOCYTES 3.4 %; LYMPHOCYTES ABSOLUTE 0.63 10/3/uL (0.67-4.30); MEAN CORPUS HGB CONC 33.8 g/dL (32.0-36.0); MEAN CORPUSCULAR VOLUME 94.8 fL (80-100); MEAN PLATELET VOLUME 9.2 fL (9.2-13.0); MONOCYTES 3.9 %; MONOCYTES ABSOLUTE 0.73 10/3/uL (0.21-1.20); NEUTROPHILS 92.2 %; NEUTROPHILS ABSOLUTE 17.09 10/3/uL (2.02-8.40); PLATELET COUNT 271 10/3/uL (150-400); RBC DISTRIBUTION WIDTH 13.8 % (12.0-16.0); RED CELL COUNT 4.62 10/6/uL (4.0-5.6); WHITE BLOOD CELLS 18.6 10/3/uL (4.5-10.5)
[2016-09-20 04:33] LABS: MANUAL DIFF NO %
[2016-09-20 04:54] LABS: BUN (BLOOD UREA NITROGEN) 37 MG/DL (6-23); CALCIUM, SERUM 8.9 MG/DL (8.5-10.4); CHLORIDE, SERUM 103 MMOL/L (96-112); CO2 (CARBON DIOXIDE) 26 MMOL/L (24-34); CREATININE 1.05 MG/DL (0.55-1.02); GFR AFRICAN AMERICAN 66 ML/MIN (>=60); GFR NON AFRICAN AMERICAN 57 ML/MIN (>=60); GLUCOSE, SERUM 187 MG/DL (60-99); PHOSPHORUS, SERUM 3.6 MG/DL (2.5-4.5); POTASSIUM, SERUM 4.6 MMOL/L (3.5-5.3); SODIUM, SERUM 139 MMOL/L (135-148)
[2016-09-20 05:01] LABS: TROPONIN I 0.02 NG/ML (<0.05)
[2016-09-21 05:47] LABS: BASOPHILS 0.1 %; BASOPHILS ABSOLUTE 0.01 10/3/uL (0.0-0.16); EOSINOPHILS 0 %; HEMOGLOBIN 14.1 g/dL (12.0-16.0); IMMATURE GRANULOCYTES 0.5 %; IMMATURE GRANULOCYTES ABSOLUTE 0.06 10/3/uL (0.0-0.11); LYMPHOCYTES 6.9 %; LYMPHOCYTES ABSOLUTE 0.77 10/3/uL (0.67-4.30); MEAN CORPUS HGB CONC 33.6 g/dL (32.0-36.0); MEAN CORPUSCULAR HEMOGLOB 31.8 pg (26.0-34.0); MEAN CORPUSCULAR VOLUME 94.8 fL (80-100); MEAN PLATELET VOLUME 9.4 fL (9.2-13.0); MONOCYTES 3.6 %; NEUTROPHILS 88.9 %; NEUTROPHILS ABSOLUTE 9.84 10/3/uL (2.02-8.40); PLATELET COUNT 253 10/3/uL (150-400); RBC DISTRIBUTION WIDTH 13.8 % (12.0-16.0); RED CELL COUNT 4.43 10/6/uL (4.0-5.6)
[2016-09-21 05:48] LABS: MANUAL DIFF NO %; WHITE BLOOD CELLS 11.1 10/3/uL (4.5-10.5)
[2016-09-21 05:56] LABS: BUN (BLOOD UREA NITROGEN) 40 MG/DL (6-23); CALCIUM, SERUM 8.6 MG/DL (8.5-10.4); CHLORIDE, SERUM 103 MMOL/L (96-112); CO2 (CARBON DIOXIDE) 26 MMOL/L (24-34); CREATININE 1.09 MG/DL (0.55-1.02); GFR AFRICAN AMERICAN 63 ML/MIN (>=60); GFR NON AFRICAN AMERICAN 54 ML/MIN (>=60); GLUCOSE, SERUM 196 MG/DL (60-99); POTASSIUM, SERUM 4.2 MMOL/L (3.5-5.3); SODIUM, SERUM 139 MMOL/L (135-148)
[2016-09-22 06:21] LABS: BASOPHILS 0.1 %; BASOPHILS ABSOLUTE 0.01 10/3/uL (0.0-0.16); EOSINOPHILS 0.1 %; EOSINOPHILS ABSOLUTE 0.01 10/3/uL (0.0-0.53); HEMATOCRIT 44.3 % (36.0-48.0); HEMOGLOBIN 14.9 g/dL (12.0-16.0); IMMATURE GRANULOCYTES 0.7 %; IMMATURE GRANULOCYTES ABSOLUTE 0.08 10/3/uL (0.0-0.11); LYMPHOCYTES 7.2 %; LYMPHOCYTES ABSOLUTE 0.86 10/3/uL (0.67-4.30); MEAN CORPUS HGB CONC 33.6 g/dL (32.0-36.0); MEAN CORPUSCULAR HEMOGLOB 31.7 pg (26.0-34.0); MEAN CORPUSCULAR VOLUME 94.3 fL (80-100); MEAN PLATELET VOLUME 9.8 fL (9.2-13.0); MONOCYTES 5.1 %; MONOCYTES ABSOLUTE 0.61 10/3/uL (0.21-1.20); NEUTROPHILS 86.8 %; NEUTROPHILS ABSOLUTE 10.34 10/3/uL (2.02-8.40); PLATELET COUNT 249 10/3/uL (150-400); RBC DISTRIBUTION WIDTH 13.9 % (12.0-16.0); WHITE BLOOD CELLS 11.9 10/3/uL (4.5-10.5)
[2016-09-22 06:22] LABS: MANUAL DIFF NO %
[2016-09-22 06:31] LABS: BUN (BLOOD UREA NITROGEN) 39 MG/DL (6-23); CALCIUM, SERUM 8.9 MG/DL (8.5-10.4); CHLORIDE, SERUM 104 MMOL/L (96-112); CO2 (CARBON DIOXIDE) 25 MMOL/L (24-34); CREATININE 0.92 MG/DL (0.55-1.02); GFR AFRICAN AMERICAN 77 ML/MIN (>=60); GFR NON AFRICAN AMERICAN 67 ML/MIN (>=60); PHOSPHORUS, SERUM 3.3 MG/DL (2.5-4.5); POTASSIUM, SERUM 4.3 MMOL/L (3.5-5.3); SODIUM, SERUM 140 MMOL/L (135-148)
[2016-09-22 06:33] LABS: GLUCOSE, SERUM 146 MG/DL (60-99)
[2016-09-23 05:37] LABS: BASOPHILS 0.1 %; BASOPHILS ABSOLUTE 0.01 10/3/uL (0.0-0.16); EOSINOPHILS 0 %; HEMATOCRIT 44.7 % (36.0-48.0); HEMOGLOBIN 14.9 g/dL (12.0-16.0); IMMATURE GRANULOCYTES 0.5 %; IMMATURE GRANULOCYTES ABSOLUTE 0.08 10/3/uL (0.0-0.11); LYMPHOCYTES 5.8 %; LYMPHOCYTES ABSOLUTE 0.86 10/3/uL (0.67-4.30); MEAN CORPUS HGB CONC 33.3 g/dL (32.0-36.0); MEAN CORPUSCULAR HEMOGLOB 31.5 pg (26.0-34.0); MEAN CORPUSCULAR VOLUME 94.5 fL (80-100); MEAN PLATELET VOLUME 9.5 fL (9.2-13.0); MONOCYTES 4.4 %; MONOCYTES ABSOLUTE 0.65 10/3/uL (0.21-1.20); NEUTROPHILS 89.2 %; NEUTROPHILS ABSOLUTE 13.26 10/3/uL (2.02-8.40); PLATELET COUNT 267 10/3/uL (150-400); RBC DISTRIBUTION WIDTH 13.9 % (12.0-16.0); RED CELL COUNT 4.73 10/6/uL (4.0-5.6); WHITE BLOOD CELLS 14.9 10/3/uL (4.5-10.5)
[2016-09-23 05:38] LABS: MANUAL DIFF NO %
[2016-09-23 05:45] LABS: BUN (BLOOD UREA NITROGEN) 42 MG/DL (6-23); CALCIUM, SERUM 8.9 MG/DL (8.5-10.4); CHLORIDE, SERUM 104 MMOL/L (96-112); CO2 (CARBON DIOXIDE) 24 MMOL/L (24-34); CREATININE 1.07 MG/DL (0.55-1.02); GFR AFRICAN AMERICAN 64 ML/MIN (>=60); GFR NON AFRICAN AMERICAN 56 ML/MIN (>=60); GLUCOSE, SERUM 171 MG/DL (60-99); POTASSIUM, SERUM 4.6 MMOL/L (3.5-5.3); SODIUM, SERUM 140 MMOL/L (135-148)
[2016-09-24 05:24] LABS: BASOPHILS 0.1 %; BASOPHILS ABSOLUTE 0.01 10/3/uL (0.0-0.16); EOSINOPHILS 0 %; HEMATOCRIT 43.9 % (36.0-48.0); HEMOGLOBIN 14.8 g/dL (12.0-16.0); IMMATURE GRANULOCYTES 0.8 %; IMMATURE GRANULOCYTES ABSOLUTE 0.09 10/3/uL (0.0-0.11); LYMPHOCYTES 5.4 %; LYMPHOCYTES ABSOLUTE 0.65 10/3/uL (0.67-4.30); MANUAL DIFF NO %; MEAN CORPUS HGB CONC 33.7 g/dL (32.0-36.0); MEAN CORPUSCULAR HEMOGLOB 31.7 pg (26.0-34.0); MEAN PLATELET VOLUME 9.3 fL (9.2-13.0); MONOCYTES 4.5 %; MONOCYTES ABSOLUTE 0.54 10/3/uL (0.21-1.20); NEUTROPHILS 89.2 %; NEUTROPHILS ABSOLUTE 10.64 10/3/uL (2.02-8.40); PLATELET COUNT 235 10/3/uL (150-400); RBC DISTRIBUTION WIDTH 13.8 % (12.0-16.0); RED CELL COUNT 4.67 10/6/uL (4.0-5.6); WHITE BLOOD CELLS 11.9 10/3/uL (4.5-10.5)
[2016-09-24 05:34] LABS: BUN (BLOOD UREA NITROGEN) 40 MG/DL (6-23); CALCIUM, SERUM 8.9 MG/DL (8.5-10.4); CHLORIDE, SERUM 105 MMOL/L (96-112); CO2 (CARBON DIOXIDE) 24 MMOL/L (24-34); CREATININE 0.99 MG/DL (0.55-1.02); GFR AFRICAN AMERICAN 71 ML/MIN (>=60); GFR NON AFRICAN AMERICAN 61 ML/MIN (>=60); GLUCOSE, SERUM 179 MG/DL (60-99); PHOSPHORUS, SERUM 3.6 MG/DL (2.5-4.5); POTASSIUM, SERUM 4.4 MMOL/L (3.5-5.3); SODIUM, SERUM 140 MMOL/L (135-148)
[2016-09-26 05:27] LABS: BASOPHILS 0.1 %; BASOPHILS ABSOLUTE 0.01 10/3/uL (0.0-0.16); EOSINOPHILS 0 %; HEMATOCRIT 45.9 % (36.0-48.0); HEMOGLOBIN 15.6 g/dL (12.0-16.0); IMMATURE GRANULOCYTES 0.7 %; IMMATURE GRANULOCYTES ABSOLUTE 0.11 10/3/uL (0.0-0.11); LYMPHOCYTES 6.5 %; LYMPHOCYTES ABSOLUTE 0.97 10/3/uL (0.67-4.30); MEAN CORPUSCULAR VOLUME 94.3 fL (80-100); MEAN PLATELET VOLUME 9.7 fL (9.2-13.0); MONOCYTES 4.6 %; MONOCYTES ABSOLUTE 0.69 10/3/uL (0.21-1.20); NEUTROPHILS 88.1 %; NEUTROPHILS ABSOLUTE 13.19 10/3/uL (2.02-8.40); PLATELET COUNT 234 10/3/uL (150-400); RBC DISTRIBUTION WIDTH 13.8 % (12.0-16.0); RED CELL COUNT 4.87 10/6/uL (4.0-5.6)
[2016-09-26 05:34] LABS: MANUAL DIFF NO %
[2016-09-26 05:39] LABS: BUN (BLOOD UREA NITROGEN) 43 MG/DL (6-23); CALCIUM, SERUM 9.1 MG/DL (8.5-10.4); CHLORIDE, SERUM 105 MMOL/L (96-112); CO2 (CARBON DIOXIDE) 23 MMOL/L (24-34); CREATININE 0.96 MG/DL (0.55-1.02); GFR AFRICAN AMERICAN 73 ML/MIN (>=60); GFR NON AFRICAN AMERICAN 63 ML/MIN (>=60); GLUCOSE, SERUM 165 MG/DL (60-99); PHOSPHORUS, SERUM 3.6 MG/DL (2.5-4.5); POTASSIUM, SERUM 4.7 MMOL/L (3.5-5.3); SODIUM, SERUM 140 MMOL/L (135-148)
[2016-09-27 07:14] LABS: BASOPHILS 0.1 %; BASOPHILS ABSOLUTE 0.01 10/3/uL (0.0-0.16); EOSINOPHILS 0 %; HEMOGLOBIN 15.3 g/dL (12.0-16.0); IMMATURE GRANULOCYTES ABSOLUTE 0.12 10/3/uL (0.0-0.11); LYMPHOCYTES 5.8 %; LYMPHOCYTES ABSOLUTE 0.69 10/3/uL (0.67-4.30); MEAN CORPUSCULAR HEMOGLOB 31.8 pg (26.0-34.0); MEAN CORPUSCULAR VOLUME 93.6 fL (80-100); MEAN PLATELET VOLUME 9.3 fL (9.2-13.0); MONOCYTES 5.7 %; MONOCYTES ABSOLUTE 0.68 10/3/uL (0.21-1.20); NEUTROPHILS 87.4 %; NEUTROPHILS ABSOLUTE 10.42 10/3/uL (2.02-8.40); PLATELET COUNT 191 10/3/uL (150-400); RBC DISTRIBUTION WIDTH 13.7 % (12.0-16.0); RED CELL COUNT 4.81 10/6/uL (4.0-5.6); WHITE BLOOD CELLS 11.9 10/3/uL (4.5-10.5)
[2016-09-27 07:15] LABS: MANUAL DIFF NO %
[2016-09-27 07:22] LABS: CALCIUM, SERUM 8.5 MG/DL (8.5-10.4); CHLORIDE, SERUM 107 MMOL/L (96-112); POTASSIUM, SERUM 4.6 MMOL/L (3.5-5.3); SODIUM, SERUM 140 MMOL/L (135-148)
[2016-09-27 07:30] LABS: BUN (BLOOD UREA NITROGEN) 51 MG/DL (6-23); CO2 (CARBON DIOXIDE) 22 MMOL/L (24-34); GFR AFRICAN AMERICAN 62 ML/MIN (>=60); GFR NON AFRICAN AMERICAN 54 ML/MIN (>=60); GLUCOSE, SERUM 157 MG/DL (60-99); PHOSPHORUS, SERUM 3.7 MG/DL (2.5-4.5)
== END 2016-09-27 15:10 | DRG 40 ==
LOC: ER 17:01 → 6NO 23:59 → 4EA 09-17 22:19
PROVIDERS: Emergency Medicine; Hospitalist; Internal Medicine; Internal Medicine Pulmonary Disease; Physician Assistant
PROC: DW21DZZ Stereotactic Other Photon Radiosurgery of Head and Neck (ICD-10-PCS; principal; 2016-09-16)
DX: C79.31 Secondary malignant neoplasm of brain (principal); J69.0 Pneumonitis due to inhalation of food and vomit; N17.9 Acute kidney failure, unspecified; J96.11 Chronic respiratory failure with hypoxia; E87.2 Acidosis; J38.02 Paralysis of vocal cords and larynx, bilateral; J44.1 Chronic obstructive pulmonary disease with (acute) exacerbation; C34.11 Malignant neoplasm of upper lobe, right bronchus or lung; R56.9 Unspecified convulsions; E11.9 Type 2 diabetes mellitus without complications; I10 Essential (primary) hypertension; K21.9 Gastro-esophageal reflux disease without esophagitis; F17.210 Nicotine dependence, cigarettes, uncomplicated; I69.332 Monoplegia of upper limb following cerebral infarction affecting left dominant side; Z66 Do not resuscitate; I69.398 Other sequelae of cerebral infarction
CPT/HCPCS: 36600; 70450; 70551; 70553; 71020; 74230; 77280; 77290; 77295; 77300; 77334; 77336; 77412; 80048; 80053; 80069; 80307; 81001; 82140; 82607; 82746; 82805; 82962; 83036; 83605; 83690; 83735; 83880; 84100; 84145; 84439; 84443; 84484; 85025; 85610; 85730; 87040; 87077; 87086; 87186; 87804; 92611-GN; 93005; 94640; 97161-GP; 97164-GP; 97530-GP; 99285; A9270-GY; A9577; J0360; J2405